=== PATIENT | female | born 1970 | race Native Hawaiian/Other Pacific Islander ===

== ENCOUNTER 2019-06-29 09:07 | Outpatient (CLI) | payer OTHER | END 2019-06-29 19:11 | disposition home or self-care (01) | LOC: MAMMO 09:07 | DX: Z12.31 Encounter for screening mammogram for malignant neoplasm of breast (principal) ==

== ENCOUNTER 2020-07-11 11:25 | Outpatient (CLI) | payer OTHER | END 2020-07-11 19:11 | disposition home or self-care (01) | LOC: MAMMO 11:25 | PROVIDERS: ATTEND Nurse Practitioner | DX: Z12.31 Encounter for screening mammogram for malignant neoplasm of breast (principal) ==

== ENCOUNTER 2021-11-29 09:48 | Outpatient (CLI) | payer OTHER | END 2021-11-29 21:35 | disposition home or self-care (01) | LOC: MAMMO 09:48 | PROVIDERS: ATTEND Nurse Practitioner Family | DX: Z12.31 Encounter for screening mammogram for malignant neoplasm of breast (principal) ==

== ENCOUNTER 2022-12-12 07:22 | Outpatient (CLI) | payer OTHER | END 2022-12-12 18:52 | disposition home or self-care (01) | LOC: RAD 07:22 | PROVIDERS: ATTEND Nurse Practitioner Family | DX: Z12.31 Encounter for screening mammogram for malignant neoplasm of breast (principal); Z13.820 Encounter for screening for osteoporosis; M85.88 Other specified disorders of bone density and structure, other site ==